=== PATIENT | male | born 2005 | race Caucasian/White ===

== ENCOUNTER 2024-12-17 13:00 | Emergency (ER) | payer BC ==
[2024-12-17] MEDS ORDERED: Ketorolac Tromethamine 30 MG (1 mL) VIAL ONE (13:25)
== END 2024-12-17 14:32 | disposition home or self-care (01) ==
LOC: CSHERS 13:00
DX: S43.401A Unspecified sprain of right shoulder joint, initial encounter (principal); F17.290 Nicotine dependence, other tobacco product, uncomplicated; W05.1XXA Fall from non-moving nonmotorized scooter, initial encounter
CPT/HCPCS: 96372; 99283; J1885